=== PATIENT | female | born 1970 | race African-American/Black ===

== ENCOUNTER 2016-12-14 15:13 | Emergency (ER) | payer OTHER ==
[~2016-12-14] VITALS: Ht 157.5 cm; Wt 113.4 kg
[2016-12-14] MEDS ORDERED: CYCL10TA2 PO (16:07)
--- NOTE | 2016-12-14 16:07 | PHYS DOC ---
Past Medical History Past Medical History: Hypertension Past Surgical History: , Tubal ligation Alcohol Use: None Drug Use: None Adult General Chief Complaint Chief Complaint: BACK PAIN - NO INJURY HPI HPI Patient is a 46 year old female presents emergency department stating that she Yesterday morning with right lower back pain and discomfort. Patient denies any trauma or injury to the back area. She states that she has not taken anything for pain and discomfort. She classifies the pain is a 10 out of 10. Patient states that she has not taken anything because she doesn't have any Tylenol or ibuprofen at home. Patient denies any loss of bowel or bladder. She denies any numbness or tingling down into her lower extremities. Patient was able to ambulate with a good steady gait although she was slowed ambulation. Patient also complaints of right flank pain and discomfort. Denies any urinary frequency urgency or pain with urination. Patient does state that she has history of back discomfort in the past but this is nothing like the incidents before. Patient states that she is unable to describe the type of pain that she has having. Review of Systems Review of Systems Constitutional: Denies fever or chills [] Eyes: Denies change in visual acuity, redness, or eye pain [] HENT: Denies nasal congestion or sore throat [] Respiratory: Denies cough or shortness of breath [] Cardiovascular: No additional information not addressed in HPI [] GI: Denies abdominal pain, nausea, vomiting, bloody stools or diarrhea [] : Denies dysuria or hematuria [] Musculoskeletal: Right lower back pain and discomfort. Integument: Denies rash or skin lesions [] Neurologic: Denies headache, focal weakness or sensory changes [] Endocrine: Denies polyuria or polydipsia [] Current Medications Current Medications Current Medications Medications (Trade) Dose Ordered Sig/[facility] Start Time Stop Time Status Last Admin Dose Admin Ibuprofen (Motrin) 800 mg 1X ONCE 12/14/16 16:15 12/14/16 16:16 DC 12/14/16 16:32 800 MG Allergies Allergies Allergies Coded Allergies Type Severity Reaction Last Updated Verified No Known Drug Allergies 04/02/14 No Physical Exam Physical Exam Constitutional: Well developed, well nourished, no acute distress, non-toxic appearance. [] HENT: Normocephalic, atraumatic, bilateral external ears normal, oropharynx moist, no oral exudates, nose normal. [] Eyes: PERRLA, EOMI, conjunctiva normal, no discharge. [] Neck: Normal range of motion, no tenderness, supple, no stridor. [] Cardiovascular:Heart rate regular rhythm, no murmur [] Lungs & Thorax: Bilateral breath sounds clear to auscultation [] Skin: Warm, dry, no erythema, no rash. [] Back: No tenderness, right CVA tenderness. Patient refuses to attempt to do straight leg raises stating that it causes her doctor worse. Extremities: No tenderness, no cyanosis, no clubbing, ROM intact, no edema. [] Neurologic: Alert and oriented X 3, normal motor function, normal sensory function, no focal deficits noted. [] Psychologic: Affect normal, judgement normal, mood normal. [] Current Patient Data Vital Signs Vital Signs Date Time Temp Pulse Resp B/P (MAP) Pulse Ox O2 Delivery O2 Flow Rate FiO2 12/14/16 15:52 98.4 97 18 97 Room Air 98.4 Lab Values Laboratory Tests Test 12/14/16 16:00 Urine Collection Type Void Urine Color Yellow Urine Clarity Clear Urine pH 6.5 Urine Specific [place] 1.025 Urine Protein Negative mg/dL (NEG-TRACE) Urine Glucose (UA) Negative mg/dL (NEG) Urine Ketones (Stick) Trace mg/dL (NEG) Urine Blood Negative (NEG) Urine Nitrite Positive (NEG) Urine Bilirubin Negative (NEG) Urine Urobilinogen Dipstick 0.2 mg/dL (0.2 mg/dL) Urine Leukocyte Esterase Small (NEG) Urine RBC Occ /HPF (0-2) Urine WBC 5-10 /HPF (0-4) Urine Squamous Epithelial Cells Mod /LPF Urine Bacteria Many /HPF (0-FEW) Urine Mucus Mod /LPF EKG EKG [] Radiology/Procedures Radiology/Procedures [] Course & Med Decision Making Course & Med Decision Making Pertinent Labs and Imaging studies reviewed. (See chart for details) Urinalysis was obtained. Urine was positive for urinary tract infection. Patient will be placed on Cipro 1 tablet twice a day for the next 7 days. Patient be recommended drink plenty fluids such as water and cranberry juice. Avoid coverages cocktail, carbonated beverages, citrus fruits alcohol and caffeine as these are considered irritants to the bladder. Patient will be encouraged to use Tylenol or ibuprofen for pain and discomfort. She'll be provided with a prescription for Flexeril in which she'll be instructed will cause drowsiness don't take any be alert and oriented. Patient will be discharged home in stable condition with signs and symptoms to return back to emergency department. Recommended following up primary care physician in the next 7-10 days. Patient agrees with discharge instructions treatment regimens and follow-up recommendations. Patient's blood pressure was elevated here in the emergency department. She was instructed to monitor her blood pressure follow-up with her primary care physician. Patient denies any headache, chest pain shortness of air difficulty breathing she denied any lower edema swelling in her legs. Patient's blood pressure upon discharge was 116/95. [] Dragon Disclaimer Dragon Disclaimer This electronic medical record was generated, in whole or in part, using a voice recognition dictation system. Departure Departure Impression: Primary Impression: Lower back pain Additional Impression: Urinary tract infection Disposition: 01 HOME, SELF-CARE Condition: STABLE Referrals: NON,STAFF (PCP) Patient Instructions: Back Pain, Adult, [id number], Urinary Tract Infection, [id number] Additional Instructions: Activity as tolerated. Tylenol or ibuprofen for pain and discomfort. Flexeril as a muscle relaxer this medication will cause drowsiness do not take any be alert and oriented. Ice packs to the areas discomfort on 20 minutes off 20 minutes several times a day. Your urine was positive for urinary tract infection. Drink plenty fluids such as water and cranberry juice. Avoid cranberry juice cocktail carbonate beverages, citrus fruits and alcohol seizure considered irritants to the bladder. Medications as prescribed. Monitor your blood pressure follow-up to primary care physician accordingly. Follow-up to primary care physician next 7-10 days. Return back to emergency prior signs and symptoms that become worse. Scripts Ciprofloxacin Hcl (CIPRO) 500 Mg Tablet 1 TAB PO BID, #14 TAB Prov: JORGE ALVARENGA APRN 12/14/16 Cyclobenzaprine Hcl (CYCLOBENZAPRINE HCL) 10 Mg Tablet 10 MG PO TID, #30 TAB Prov: JORGE ALVARENGA APRN 12/14/16 Problem Qualifiers JORGE ALVARENGA APRN Dec 14, 2016 16:07
[2016-12-14] MEDS ORDERED: IBUPROFEN 800 MG TABLET. PO ONE (16:15)
[2016-12-14 16:22] LABS: BILIRUBIN,URINE NEGATIVE (NEG); GLUCOSE,URINE NEGATIVE (NEG); NITRITE,URINE POSITIVE (NEG); PH,URINE 6.5; PROTEIN,URINE NEGATIVE (NEG-TRACE); UROBILINOGEN,URINE 0.2 mg/dL (0.2 mg/dL)
[2016-12-14 16:52] LABS: BACTERIA,URINE MANY /HPF (0-FEW); RBC,URINE OCC /HPF (0-2); SQUAMOUS EPITHELIAL CELL,UR MOD /LPF
[2016-12-14] MEDS ORDERED: CIPR500T94 PO (16:57)
[2016-12-14 17:03] VITALS: BP 169/95
== END 2016-12-14 17:03 | disposition home or self-care (01) ==
LOC: ER 15:13
DX: M54.5 Low back pain (principal); N39.0 Urinary tract infection, site not specified; I10 Essential (primary) hypertension; Z98.51 Tubal ligation status
CPT/HCPCS: 81001; 87086; 99284